=== PATIENT | male | born 1985 | race Caucasian/White ===

== ENCOUNTER 2019-03-25 09:59 | Outpatient (CLI) | payer BC ==
--- NOTE | 2019-03-25 10:32 | RAD ---
3 views left wrist. HISTORY: Fall while playing soccer on Sunday with left wrist pain. AP, lateral and oblique views left wrist is obtained. 3 views left wrist demonstrate no definite evidence of left wrist fractures, subluxations or bony les ions. No evidence of acute or chronic bony abnormality seen. The scaphoid is unremarkable on these images. If there is concern for an occult fracture repeat radio graph in 7-10 days may be of use. IMPRESSION: Normal 3 views left wrist.
== END 2019-03-25 10:00 | disposition home or self-care (01) ==
LOC: BICRAD 09:59
PROVIDERS: ATTEND Physician Assistant
DX: M25.532 Pain in left wrist (principal)